=== PATIENT | male | born 1985 | race African-American/Black ===

== ENCOUNTER 2018-12-26 21:43 | Emergency (ER) | payer OTHER ==
[2018-12-27] MEDS: KETOROLAC 60 MG INJ IM (03:13)
[2018-12-27] MEDS: HYDROCODONE/APAP (5/325) TAB PO (03:13)
== END 2018-12-27 05:27 | disposition home or self-care (01) ==
LOC: FTE 21:43
DX: S49.92XA Unspecified injury of left shoulder and upper arm, initial encounter (principal); S19.9XXA Unspecified injury of neck, initial encounter; W20.8XXA Other cause of strike by thrown, projected or falling object, initial encounter; Y92.89 Other specified places as the place of occurrence of the external cause
CPT/HCPCS: 96372; 99284-25